=== PATIENT | female | born 1995 | race Caucasian/White ===

== ENCOUNTER 2019-03-09 22:20 | Emergency (ER) | payer OTHER ==
[~2019-03-09] VITALS: Ht 157.5 cm; Wt 78.0 kg
[2019-03-09 22:32] VITALS: BP 108/64
[2019-03-09] MEDS ORDERED: ONDANSETRON 4 MG ODT PO ONE (23:40)
[2019-03-09] MEDS ORDERED: KETOROLAC 60 MG/2 ML VIAL IM ONE (23:40)
[2019-03-10 00:16] VITALS: BP 114/72
== END 2019-03-10 00:16 | disposition home or self-care (01) ==
LOC: MED 22:20
DX: R10.13 Epigastric pain (principal); R11.0 Nausea
CPT/HCPCS: 81002; 81025; 96372; 99283; J1885; Q0162

== ENCOUNTER 2023-07-05 17:01 | Emergency (ER) | payer OTHER ==
[~2023-07-05] VITALS: Ht 162.6 cm; Wt 72.6 kg
[2023-07-05 17:31] VITALS: BP 130/85; PULSE 82; RESP 18; TEMP 98; O2SAT 98
[2023-07-05 20:04] LABS: APPEARANCE,URINE CLEAR (CLEAR); BILIRUBIN,URINE NEGATIVE (NEGATIVE); BLOOD, URINE 3+ (NEGATIVE); COLOR,URINE YELLOW (YELLOW); LEUKOCYTE ESTERASE ,URINE NEGATIVE (NEGATIVE); NITRITE, URINE NEGATIVE (NEGATIVE); PROTEIN,URINE NEGATIVE (NEGATIVE); UGLUCOSE NEGATIVE (NEGATIVE); UROBILINOGEN,URINE 0.2 EU/dL (0.2 - 1)
[2023-07-05 20:16] LABS: BACTERIA,URINE FEW /HPF (None Seen); SQUAMOUS EPITHELIAL CELL,UR 0-3 (FEW) /LPF (0-3 (FEW)); WBC,URINE 0-5 /HPF (0-5)
== END 2023-07-05 20:23 | disposition left against medical advice (07) ==
LOC: MED 17:01
DX: N93.9 Abnormal uterine and vaginal bleeding, unspecified (principal); Z53.21 Procedure and treatment not carried out due to patient leaving prior to being seen by health care provider
CPT/HCPCS: 81001; 81025; 99281